=== PATIENT | male | born 1955 | race Caucasian/White ===

== ENCOUNTER 2017-02-26 10:23 | Emergency (ER) | payer BC, OTHER ==
[~2017-02-26] VITALS: Ht 182.9 cm; Wt 120.7 kg
[~2017-02-26 10:23] MED LIST: DORYX200 MG PO; EFFEXOR75 MG PO; FINACEA 15% GEL50 GM TP; LOPID600 MG PO; LOTREL 5/201 CAPSULE PO; MOTRIN800 MG PO; PANTOPRAZOLE SO40 MG PO; PROTONIX40 MG PO
[2017-02-26] MEDS ORDERED: PREDNISONE50 MG PO (13:50)
[2017-02-26] MEDS ORDERED: PROVENTIL HFA6.7 GM IH (13:50)
[2017-02-26 14:00] VITALS: BP 148/86
== END 2017-02-26 14:06 | disposition home or self-care (01) ==
LOC: EME 10:23
DX: J20.9 Acute bronchitis, unspecified (principal); I10 Essential (primary) hypertension; K21.9 Gastro-esophageal reflux disease without esophagitis; F41.9 Anxiety disorder, unspecified; F43.10 Post-traumatic stress disorder, unspecified; Z87.891 Personal history of nicotine dependence
CPT/HCPCS: 71046; 94640; 99281; 99284